=== PATIENT | female | born 1960 | race Caucasian/White ===

== ENCOUNTER 2019-09-03 11:15 | Emergency (ER) | payer BC, SELFPAY ==
[2019-09-03 11:30] VITALS: BP 144/81; PULSE 73; RESP 16; TEMP 36.9; O2SAT 96
--- NOTE | 2019-09-03 12:03 | ED.ANIMALBIT ---
HPI - Animal Bite General Chief Complaint: Animal Bite Stated Complaint: Dog bite Source: patient Mode of arrival: ambulatory History of Present Illness HPI narrative: patient is a 58-year-old presents with a dog bite to her right elbow area at some household pet while she was playing with her boxer inadvertently cut his tooth caught in her right elbow area causing laceration approximately 3cm in length and gaping, the patient has no other symptoms no numbness or tingling to her fingers or forearm has a good strong radial pulse is up-to-date with her tetanus, currently no fever or chills. complaint: animal bite Onset (ago): hour(s) Animal: dog Description of animal: household pet Mechanism: bite Location - Extremities: Right: elbow ( Gaping laceration approximately 3cm in length) Severity scale (1-10): 2 Context: playing with animal Associated symptoms: none Treatments prior to arrival: irrigation and pressure Related Data Patient tetanus UTD: Yes Allergies Allergy/AdvReac Type Severity Reaction Status Date / Time No Known Allergies Allergy Verified 09/03/19 12:09 Review of Systems Review of Systems: All systems reviewed & are unremarkable except as noted in HPI and below [facility] Past Medical History Medical History Hypothyroidism (acquired) Exam Const: General: cooperative, healthy appearing, comfortable, no acute distress, well developed, alert, awake and Physically active Limitations: no limitations HENMT: Head: normal to inspection Ears: hearing grossly normal bilaterally General nose exam: Normal external nose present Face and sinus: normal facial exam and sinuses nontender Mouth: Yes Normal oral and palatal mucosa present Eyes: General: appearance normal, both eyes and all related structures Pupils: Equal, round and reactive pupils present EOM: EOMs intact bilaterally Neck: Neck: normal visual inspection and full ROM Chest: Chest palpation & inspection: normal inspection of the chest Resp: Effort & Inspection: normal respiratory effort and able to speak in complete sentences Cardio: Palpation: normal PMI Rate: regular rate Rhythm: regular rhythm GI: Inspection: normal to inspection Skin: Wounds: wounds noted ( Gaping laceration approximately 3cm in length and her right elbow area) Hair: normal Neuro: General: oriented to person and patient oriented x3 Extrem: General: normal to inspection, full ROM and capillary refill normal Psych: Appearance: grossly normal Course Course Emergency Course: patient doing well currently pain level is well controlled, and was told procedure needed to use sutures to sew up the laceration to her right elbow area. Procedures Laceration Laceration 1: Date: 09/03/19 Time: 12:08 Site: upper extremity Side (If applicable): right Description: linear and clean Depth: simple, single layer Local Anesthetic: lidocaine 1% Amount of anesthesia used (mL): 8 Pre-repair: wound explored and irrigated ====== Skin Level ====== Skin layer closed with: vicryl Size (cm): 4-0 Number of sutures: 5 Technique: simple, interrupted ====== Subcutaneous Layer ====== ====== Muscle Layer ====== ====== Tendon Layer ====== Critical Care Time Critical Care Time Critical Care Time: No Discharge Plan Discharge Clinical Impression: Laceration Dog bite Qualifiers: Encounter type: initial encounter Qualified Code(s): W54.0XXA - Bitten by dog, initial encounter Patient Disposition: Home, Self-Care Condition: Stable Instructions: Antibiotic Form Additional Instructions: Take medicine as prescribed and follow-up with primary care physician if symptoms persist or worsen. Will need sutures removed in approximately 1 week. Prescriptions: New sulfamethoxazole-trimethoprim [Bactrim DS] 800-160 mg tablet
[2019-09-03 12:20] VITALS: RESP 16
== END 2019-09-03 12:20 | disposition home or self-care (01) ==
PROVIDERS: Emergency Provider Emergency Medicine; PCP Family Medicine
DX: S51.011A Laceration without foreign body of right elbow, initial encounter (principal); W54.0XXA Bitten by dog, initial encounter
CPT/HCPCS: 12002; 99283